=== PATIENT | male | born 1940 | race Caucasian/White ===

== ENCOUNTER 2017-01-22 09:30 | Day surgery (SDC) | payer MEDICARE ==
[~2017-01-22] VITALS: Ht 188 cm; Wt 97.5 kg
[~2017-01-22 09:30] MED LIST: IBUP1TAB10 PO; KEN1O TOP; MELA1TAB10 PO; Sodium Chloride LOK Flush 10 mL Syringe IV PRN; TERB250T4 PO; fentaNYL-PF 50 mCg/mL 2 mL Inj IVPUSH PRN
[2017-01-22 09:43] VITALS: BP 151/73; PULSE 57; RESP 16; O2SAT 98
[2017-01-22] MEDS: 0.9% Sodium Chloride 1,000 ML IV SCH ×2 (09:51→10:41)
[2017-01-22 10:54] VITALS: BP 129/69; PULSE 55; RESP 14; O2SAT 98
[2017-01-22 11:07] VITALS: BP 132/74; PULSE 54; RESP 14; O2SAT 96
--- NOTE | 2017-01-22 18:51 | ENDO ---
[address] [address] ENDOSCOPY PROCEDURE PATIENT: PATT FELIX : 1940 MR#: [id number] ADMIT: 01/22/2017 JOB ID: [id number] PRIMARY PROVIDER: Severo Esposito MD. PROCEDURE: Colonoscopy with hot snare polypectomy and cold forceps polypectomy. INDICATIONS: A 77-year-old male, personal history of colon polyps, returning for surveillance. EQUIPMENT: [employer]-H180AL. SEDATION: 4 mg Versed, 100 mcg fentanyl. COMPLICATIONS: None identified. Bowel prep suboptimal, requiring copious amounts of irrigation and suction. We went through an entire wall canister. PROCEDURE INFORMATION: After the risks and benefits were explained, written and verbal informed consent was obtained, the patient was brought into the endoscopy suite and placed into the left lateral decubitus position. Sedation was achieved as above, digital rectal examination accomplished. Mild internal hemorrhoids noted. The scope was introduced into the rectum and advanced to the cecum as identified by the appendiceal orifice and ileocecal valve. The scope was slowly withdrawn to carefully examine the mucosa for any defects or lesions. Retroflexed views were accomplished in the rectum. The colon was decompressed, the scope removed from the patient who tolerated the procedure well. FINDINGS: Mild diverticulosis was again noted in the left colon. In the left colon, there was one diminutive polyp removed with cold forceps and then a slightly larger, perhaps 7-8 mm sessile polyp removed with hot snare. Within the limitations of bowel prep, no other significant pathology was appreciated including retroflexed views from within the rectum. ENDOSCOPIC DIAGNOSES: 1. Colon polyps. 2. Diverticulosis. 3. Hemorrhoids. RECOMMENDATIONS: 1. Await histopathology. 2. Considering bowel prep and the presence of polyps, repeat colonoscopy is suggested for three years.
--- NOTE | 2017-01-23 10:43 | PATH ---
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 ICD10 D12.6 GROSS DESCRIPTION: The specimen is received in one formalin filled container labeled with the patient's name, sublabeled "colon polyps" consists of 3 portions of tissue and possible debris which aggregate to 0.6 x 0.5 x 0.3 CM. The specimen is entirely submitted in one cassette. 01/22/2017 DAC MICRO DESCRIPTION: See diagnosis. ICD-9 CODES: CPT CODES: 1: 00503 Electronically Signed Out Scott Canchola MD [facility] [address], [place] [address] Technical component performed at [facility], [facility] [address], [place], [address]
== END 2017-01-22 23:59 | disposition home or self-care (01) ==
LOC: END 09:30
PROVIDERS: ATTEND Internal Medicine Gastroenterology
DX: Z12.11 Encounter for screening for malignant neoplasm of colon (principal); Z86.010 Personal history of colon polyps; D12.4 Benign neoplasm of descending colon; K57.30 Diverticulosis of large intestine without perforation or abscess without bleeding; K64.9 Unspecified hemorrhoids
CPT/HCPCS: 45380; 45385; 99153; G0500; J2250; J3010; J7030